=== PATIENT | female | born 1975 | race Two or more races ===

== ENCOUNTER 2016-06-18 10:07 | Emergency (ER) | payer MEDICARE, OTHER ==
--- NOTE | ~2016-06-18 | CR63 ---
[facility] A Service of [facility] RADIOLOGY TEXT RESULTS PATIENT: TUCKER MANTILLA LOCATION: SED : 73 UNIT #: [id number] AGE: [address]: Dajuan Jimenez MD SEX: F ORDER DR: [id number] [address] [address] [id number] E MR#: [id number] Acc #: [id number] NAME: TUCKER MANTILLA : 1975 SEX: F STUDY DATE/TIME: 06/18/2016 10:07 UNIT: SED ROOM: STUDY DESCRIPTION: CR Chest 2 View Attending Physician: Dajuan Jimenez M.D. Ordering Physician: Dajuan Jimenez M.D. Primary Care Physician: Cynthia Avalos M.D. MEDICAL IMAGING REPORT This report is preliminary unless electronic signature is present. EXAM PA and lateral chest. INDICATION 41-year-old female with cough since Tuesday, throat and ear pain. COMPARISON STUDIES No comparisons. FINDINGS There is a small nodular density projecting between the left posterior fourth and fifth ribs. It is indeterminate. There are no prior studies for comparison. There is slight low-volume inspiration. The heart size is normal. Degenerative changes thoracic spine. IMPRESSION Indeterminate small nodular density projecting between the left posterior fourth and fifth rib shadows. Differential diagnosis includes a granuloma, a nodule, small infiltrate, or artifact. I would suggest initial short-interval followup PA and lateral chest x-ray to document clearing. The chest x-ray can be performed in 2-4 weeks. If this is persistent and there are no studies to show that it is chronic, then chest CT would be helpful for further evaluation. Dictated by... Joseph Carlson M.D. THIS IS AN ELECTRONICALLY VERIFIED REPORT Joseph Carlson M.D. at 06/18/2016 5:05 PM ARS/tmw [facility] A Service of [facility] RADIOLOGY TEXT RESULTS PATIENT: TUCKER MANTILLA LOCATION: SED : 73 UNIT #: [id number] AGE: [address]: Dajuan Jimenez MD SEX: F ORDER DR: TD: 06/18/2016 12:14 JOB #: [id number] MEDICAL IMAGING REPORT
[2016-06-18 10:02] LABS: INFLUENZA A NEG (NEG); INFLUENZA B NEG (NEG)
[~2016-06-18 10:07] MED LIST: MELATONIN5 M1 PO; PRO-AMATINE5 MG DOB; PROTONIX40 MG/BLIS PO; QUETIAPINE FUMA25 MG PO; SARAFEM20 MG PO
== END 2016-06-18 10:40 | disposition home or self-care (01) ==
LOC: SED 10:07
PROVIDERS: Emergency Medicine
DX: J40 Bronchitis, not specified as acute or chronic (principal); R91.8 Other nonspecific abnormal finding of lung field
CPT/HCPCS: 71020; 87651; 87804; 99283